=== PATIENT | female | born 1980 ===

== ENCOUNTER 2016-07-17 18:50 | Emergency (ER) | payer BC, MEDICAID ==
[2016-07-17 18:51] VITALS: BMI 23.9
[2016-07-17 19:13] VITALS: BP 143/89; PULSE 84; RESP 16; TEMP 99.6; O2SAT 99
--- NOTE | 2016-07-17 19:34 | ED PDOC ---
HPI: Abdomen Time Seen by Provider: 07/17/16 19:19 Chief Complaint (Nursing): Abdominal Pain History Per: Patient (LLq abd pain since last night. Denies NVD. No fever. No urinary sxs. No vaginal bleeding or discharge.) Onset/Duration Of Symptoms: Days (1) Outside of [place] travel?: No Current Symptoms Are (Timing): Still Present Severity: Moderate Pain Scale Rating Of: 3 Location Of Pain/Discomfort: LLQ Quality Of Discomfort: Sharp Associated Symptoms: denies: Fever, Nausea, Vomiting, Diarrhea, Urinary Symptoms Alleviating Factors: None Abnormal Vaginal Bleeding: No Past Medical History Vital Signs: Last Vital Signs Temp 99.6 F 07/17/16 19:10 Pulse 84 07/17/16 19:10 Resp 16 07/17/16 19:10 BP 143/89 07/17/16 19:10 Pulse Ox 99 07/17/16 19:36 - Medical History PMH: No Chronic Diseases - Surgical History Other surgeries: ? uterine ablation - Family History Family History: States: Unknown Family Hx - Home Medications Home Medications: Ambulatory Orders Medication Instructions Recorded Pantoprazole Sodium [Protonix] 40 mg PO DAILY 06/18/13 Naproxen [Naprosyn] 500 mg PO Q12H #20 tab 07/17/16 Sulfamethoxazole/Trimethoprim 1 tab PO BID #20 tab 07/17/16 [Bactrim DS 800 mg-160 mg] - Allergies Allergies/Adverse Reactions: Allergies Allergy/AdvReac Type Severity Reaction Status Date / Time No Known Allergies Allergy Verified 06/18/13 07:53 Review of Systems Constitutional: Negative for: Fever Gastrointestinal: Positive for: Abdominal Pain. Negative for: Nausea, Vomiting , Diarrhea Genitourinary Female: Negative for: Dysuria, Frequency Musculoskeletal: Positive for: Back Pain Physical Exam - Physical Exam Appears: Positive for: Non-toxic, No Acute Distress Skin: Positive for: Normal Color, Warm, DRY Gastrointestinal/Abdominal: Positive for: Bowel Sounds, Soft, Tenderness (Mild LLQ tendernerss) Back: Negative for: L CVA Tenderness, R CVA Tenderness Extremity: Positive for: Normal ROM Neurologic/Psych: Positive for: Alert, Oriented - Laboratory Results Result Diagrams: 07/17/16 20:18 07/17/16 20:17 - ECG O2 Sat by Pulse Oximetry: 99 Disposition - Clinical Impression Clinical Impression: UTI (urinary tract infection) - Patient ED Disposition Is Patient to be Admitted: No Counseled Patient/Family Regarding: Studies Performed, Diagnosis, Need For Followup, Rx Given - [facility]position [facility] Disposition: Routine/Home Disposition Time: 23:39 Condition: FAIR Prescriptions: Sulfamethoxazole/Trimethoprim [Bactrim DS 800 mg-160 mg] 1 tab PO BID #20 tab Naproxen [Naprosyn] 500 mg PO Q12H #20 tab Instructions: Urinary Tract Infection in Women (ED) Print Language: K[place]
[2016-07-17 21:26] LABS: BASO % 0.1 % (0.0-2.0); EOS % 0.3 % (0.0-4.0); HEMATOCRIT 41.8 % (34.0-47.0); LYMPH % 15.4 % (20.0-40.0); MEAN CELL VOLUME 93.1 fl (81.0-99.0); MEAN CORPUSCULAR HEMOGLOBIN 31.3 pg (27.0-31.0); MEAN CORPUSCULAR HGB CONC 33.6 g/dL (33.0-37.0); MEAN PLATELET VOLUME 8.8 fl (7.2-11.7); MONO # 0.4 K/uL (0.0-0.8); MONO % 3.2 % (0.0-10.0); NEUT # 10.6 K/uL (1.8-7.0); NRBC % 0.1 % (0.0-0.0); RED CELL DISTRIBUTION WIDTH 12.4 % (11.5-14.5); WHITE BLOOD COUNT 13.1 K/uL (4.8-10.8)
--- NOTE | 2016-07-17 21:33 | US ---
EXAM: US Pelvis, Transvaginal. CLINICAL HISTORY: 36 years old, female; Pain; Pelvic pain; Additional info: Llq pain TECHNIQUE: Real-time transvaginal pelvic ultrasound (complete) with image documentation. Transvaginal imaging was used for better evaluation of the endometrium and adnexa. COMPARISON: No relevant prior studies available. FINDINGS: Uterus/cervix: Uterus measures 9.0 x 4.3 x 5.4 cm in size (as per worksheet). No myometrial mass. Endometrium: 1.4 cm in thickness. 2.2 x 1.0 x 1.4 cm fluid collection within endometrial canal. Nabothian cyst. Right ovary: Not visualized. Left ovary: 3.4 x 1.2 x 3.5 cm in size. No mass. Small follicles. Normal flow. Free fluid: No significant free fluid. Bladder: Empty bladder which cannot be evaluated with this probe. IMPRESSION: 1. Fluid collection within endometrial canal, nonspecific. Clinical correlation is needed. 2. Incidental/non-acute findings are described above.
[2016-07-17 21:44] LABS: ALB/GLOB RATIO 1.4 (1.0-2.1); ALKALINE PHOSPHATASE 65 U/L (38-126); ALT/SGPT 70 U/L (9-52); AST/SGOT 44 U/L (14-36); BILIRUBIN,TOTAL 0.5 mg/dl (0.2-1.3); BLOOD UREA NITROGEN 12 mg/dl (7-17); CALCIUM 8.9 mg/dL (8.4-10.2); CARBON DIOXIDE 23 mmol/L (22-30); CHLORIDE 99 mmol/L (98-107); GFR AFRICAN-AMERICAN > 60; GLUCOSE,RANDOM 85 mg/dL (65-105); POTASSIUM 4.4 MMOL/L (3.6-5.0); SODIUM 131 mmol/l (132-148); TOTAL PROTEIN 7.5 G/DL (6.3-8.2)
[2016-07-17] MEDS ORDERED: Sodium Chloride 0.9% 50 ML IV ONE (22:44)
[2016-07-17] MEDS ORDERED: Iohexol 300 100 ML IJ ONE (22:44)
--- NOTE | 2016-07-17 23:44 | CT ---
EXAM: CT Abdomen and Pelvis With Intravenous Contrast. CLINICAL HISTORY: 36 years old, female; Pain; Abdominal pain; Localized; Left lower quadrant (llq); Prior surgery; Surgery date: 6+ months; Surgery type: Ovarian cysts removed; Additional info: Abd pain llq. Sent ed physician documentation with request TECHNIQUE: Axial computed tomography images of the abdomen and pelvis with intravenous contrast. This CT exam was performed using one or more of the following dose reduction techniques: automated exposure control, adjustment of the mA and/or kV according to patient size, and/or use of iterative reconstruction technique. Coronal and sagittal reformatted images were created and reviewed. CONTRAST: 95 mL of [id number] administered intravenously. COMPARISON: US - TRANSVAGINAL 07/17/2016 8:52:10 PM FINDINGS: Lower thorax: Minimal atelectasis. ABDOMEN: Liver: Unremarkable. No mass. Gallbladder and bile ducts: Cholecystectomy. No ductal dilation. Pancreas: No ductal dilation. No mass. Spleen: No splenomegaly. Adrenals: No mass. Kidneys and ureters: No mass. No hydronephrosis. Stomach and bowel: No definite mural thickening. No obstruction. Appendix: Normal caliber. No inflammation. PELVIS: Bladder: Unremarkable. Reproductive: 1.3 x 2.3 x 1.0 cm peripherally enhancing fluid collection within endometrial canal. Small mild peripherally enhancing tubular structure within LEFT adnexal region, axial image 127-131. Possible communication between tubular structure and endometrial collection. ABDOMEN and PELVIS: Intraperitoneal space: Trace free fluid within pelvis. No free air. Bones/joints: No acute fracture. Soft tissues: Unremarkable. Vasculature: Unremarkable. No abdominal aortic aneurysm. Lymph nodes: No pathologically enlarged lymph nodes. IMPRESSION: 1. Peripherally enhancing tubular structure within LEFT adnexal region with possible communication with enhancing collection within endometrial canal. Pyosalpinx with intrauterine abscess not excluded. Consider MRI for further characterization. Clinical correlation and follow up are recommended. 2. Incidental/non-acute findings are described above.
== END 2016-07-18 00:03 | disposition home or self-care (01) ==
LOC: H.ER 18:50
DX: N39.0 Urinary tract infection, site not specified (principal); R10.32 Left lower quadrant pain; N83.209 Unspecified ovarian cyst, unspecified side

== ENCOUNTER 2017-01-04 19:24 | Emergency (ER) | payer MEDICAID, OTHER ==
[2017-01-04 19:25] VITALS: BMI 23.9
[2017-01-04 19:38] VITALS: PULSE 118; RESP 22; TEMP 98.5; O2SAT 100
[2017-01-04 19:42] VITALS: BP 140/77
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
--- NOTE | 2017-01-05 10:13 | RAD ---
PROCEDURE: Cervical Spine Radiographs. HISTORY: Pain. COMPARISON: None. FINDINGS: BONES: There is straightening of the cervical spine with loss of normal cervical lordosis. Vertebral alignment is normal. Vertebral height is maintained. There is no acute fracture or spondylolisthesis. Bone mineralization is normal. DISC SPACES: Normal. SOFT TISSUES: Normal. No prevertebral soft tissue swelling. OTHER FINDINGS: None. IMPRESSION: No acute fracture or spondylolisthesis. Straightening of the cervical spine may be positional or related to muscle spasm.
--- NOTE | 2017-01-05 10:14 | RAD ---
PROCEDURE: Left Knee Radiographs. HISTORY: Pain. COMPARISON: None. FINDINGS: BONES: Bone alignment and mineralization are normal. No acute fracture. JOINTS: Normal. No osteoarthritis. JOINT EFFUSION: None. OTHER FINDINGS: None. IMPRESSION: No acute fracture or dislocation.
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
== END 2017-01-04 23:24 | disposition home or self-care (01) ==
LOC: H.ER 19:24
DX: S16.1XXA Strain of muscle, fascia and tendon at neck level, initial encounter (principal); S20.219A Contusion of unspecified front wall of thorax, initial encounter; S46.919A Strain of unspecified muscle, fascia and tendon at shoulder and upper arm level, unspecified arm, initial encounter; S56.912A Strain of unspecified muscles, fascia and tendons at forearm level, left arm, initial encounter; V03.10XA Pedestrian on foot injured in collision with car, pick-up truck or van in traffic accident, initial encounter; Y92.410 Unspecified street and highway as the place of occurrence of the external cause
CPT/HCPCS: 71101; 72040; 73030; 73060; 73070; 73560; 81025; 96372; 99283; J1885